=== PATIENT | female | born 2000 | race Caucasian/White ===

== ENCOUNTER 2022-05-25 21:19 | Emergency (ER) | payer MEDICAID ==
[~2022-05-25] VITALS: Ht 175.3 cm; Wt 72.6 kg
[2022-05-25 21:40] VITALS: BP 150/90
--- NOTE | 2022-05-25 21:43 | NUR ---
TO LOBBY A/E BED AMBULATORY
--- NOTE | 2022-05-25 23:17 | NUR ---
Skip acuña in [facility] - 05/25/22 at 2320 by [facility] PT TO BED 8
--- NOTE | 2022-05-25 23:17 | NUR ---
PT TO BED 3
--- NOTE | 2022-05-25 23:30 | NUR ---
RECEIVED IN BED 3 WITH C/O CHEST PAIN, BACK PAIN, EPIGASTRIC PAIN, STARTED AT 1830 HOUR
--- NOTE | 2022-05-26 00:51 | NUR ---
Dr. Avalos examining patient.
[2022-05-26] MEDS ORDERED: PRED20TA5 PO (00:58)
[2022-05-26] MEDS ORDERED: ATA25 PO (00:58)
[2022-05-26] MEDS ORDERED: IBUP-2213 PO (00:58)
[2022-05-26 01:00] VITALS: BP 150/90
--- NOTE | 2022-05-26 01:00 | NUR ---
Patient discharged with v/s stable. Written and verbal after care instructions given and explained. Patient alert, oriented and verbalized understanding of instructions. Ambulatory with steady gait. All questions addressed prior to discharge. ID band removed. Patient advised to follow up with PMD. Rx of ATARQAX, IBUPROFEN, AND PREDNISONE given. Patient educated on indication of medication including possible reaction and side effects. Opportunity to ask questions provided and answered.
== END 2022-05-26 01:00 | disposition home or self-care (01) ==
LOC: MED 21:19
DX: R07.89 Other chest pain (principal); R05.9 Cough, unspecified; R06.02 Shortness of breath
CPT/HCPCS: 93005; 99283